=== PATIENT | male | born 1960 | race Caucasian/White ===

== ENCOUNTER 2018-02-18 21:13 | Inpatient (IN) ==
[2018-02-18] MEDS ORDERED: NS 1,000 ML IV ONE (21:24)
[2018-02-18] MEDS ORDERED: ONDANSETRON 4 MG/2 ML INJECTION IVP ONE (21:24)
--- NOTE | 2018-02-18 21:35 | Emergency Department Report ---
Neuro HPI - General Chief Complaint: Altered Mental Status Stated Complaint: CP,tong numb,face unable to move,dizzy blur vision Time Seen by Provider: 02/18/18 21:24 Source: patient, RN notes reviewed, old records reviewed Mode of arrival: ambulatory Limitations: no limitations - History of Present Illness HPI Narrative: 57yo man presents tot he ER for evaluation of left facial numbness and weakness. Pts sx began two days ago with some numbness and weakness of his upper left lip. Now has numbness/paresthesia/weakness of his whole left face/ tongue. Today, 4+ hours ago, pt began to have chest squeezing pressure. He has DM2; stopped taking his meds several days ago. Is in town for the last 3 mos with his son - normally lives/doctors in [place]. Has not sought prior treatment for any of this. Onset (ago): day(s) Location: left face History of same: No Quality: weak, numb, tingling Relieving factors: none Exacerbating factors: time Context: gradual onset On Anticoagulants: No Associated symptoms: chest pain Treatments Prior to Arrival: none - Related Data Home Medications: Home Medications Medication Instructions Recorded Confirmed Atorvastatin [Lipitor] 1 tab PO HS 02/18/18 02/18/18 Levothyroxine Tab [Synthroid] 200 mcg PO DAILY 02/18/18 02/18/18 Linagliptin [Tradjenta] 5 mg PO DAILY 02/18/18 02/18/18 Metoprolol Succinate 25 mg PO DAILY 02/18/18 02/18/18 Allergies/Adverse Reactions: Allergies Allergy/AdvReac Type Severity Reaction Status Date / Time acetaminophen AdvReac Verified 02/18/18 21:51 Review of Systems All systems: reviewed and negative except as stated Cardiovascular: Reports: as per HPI, chest pain. Denies: palpitations, dyspnea on exertion, orthopnea, edema, syncope, paroxysmal nocturnal dyspnea Neurological: Reports: as per HPI, weakness, numbness, paresthesias. Denies: headache, confusion, abnormal gait, vertigo PFSH Patient Stated Medical History Angina Yes Hypertension Yes Myocardial Infarction Yes Chronic Obstructive Pulmonary Yes Disease (COPD) Diabetes Mellitus Type 2 Yes Anemia Yes Clostridium Difficile Yes: 2016 Depression Yes Physical Exam - Limitations Limitations: no limitations - General General appearance: alert, in no apparent distress, obese - Normal Exams: Head:: Normocephalic without trauma Eyes:: Pupils are PERRLA w/ EOMI, No scleral icterus, irritation, or foreign bodies noted ENMT:: No facial trauma, nasal exudates, pharyngeal erythema, or exudates are noted Neck:: Full range of motion, without adenopathy Chest/Respirations:: Clear all wasserman, with good airflow, and symmetry bilaterally Cardiovascular:: Regular rate and rhythm, without murmur or gallop, Pulses 2+ all extremities, capillary refill, <2 seconds all extremities Lymphatic:: No lymphadenopathy Musculoskeletal:: No tenderness, or deformity noted Integumentary:: No rashes, hives, or bruising noted - Expanded Neurological Exam Patient oriented to: Present: person, place, time Speech: Absent: fluid speech (Mild dysarthria) Cranial nerves: Normal: EOM function (II, III, IV, ), gag reflex (IX), spinal accessory function (XI), Abnormal Left: facial sensation (V), facial palsy (VII) , tongue deviation (XII) Cerebellar function: Normal: finger to nose, heel to salcedo Cerebellar function: normal gait Motor strength - LUE: 5/5 Motor strength - RUE: 5/5 Motor strength - LLE: 5/5 Motor strength - RLE: 5/5 Upper motor neuron exam: Absent bilaterally: dipika neglect, pronator drift, Babinski sign, sensory extinction DTR: 2+: patellar (L), patellar (R) Coma scale eye opening: spontaneous Coma scale motor response: obeys commands Coma scale verbal response: oriented Coma scale total: 15 - Psychiatric Psychiatric exam: Present: agitated, anxious Course - Consultations Consultation #1: Vijay Telemed: Will admit for CVA. Time: 22:52 Vital Signs Temperature 98.0 F 02/18/18 21:14 Pulse Rate 94 02/18/18 21:14 Respiratory Rate 16 02/18/18 21:14 Blood Pressure 240/110 H 02/18/18 21:14 Pulse Oximetry 97 02/18/18 21:14 Temperature 98.7 F 02/18/18 21:30 Pulse Rate 94 02/18/18 22:15 Respiratory Rate 19 02/18/18 22:15 Blood Pressure 159/90 H 02/18/18 22:15 Pulse Oximetry 98 02/18/18 22:15 Neuro Symptoms/Deficit - MDM Narrative Medical decision making narrative: Pt with Hx and PE c/w CVA. No evidence of ACS on exam; sx likely attributable to anxiety. Explained that hospitalist would need to assess pt prior to treating his anxiety with anything that might alter his exam. - Differential Diagnosis Likely: delirium, subarachnoid hemorrhage, peripheral neuropathy, cerebrovascular accident, transient cerebral ischemia - Medical Records Attestation: I reviewed the patient's medical records. - Lab Data Attestation: I reviewed the patient's lab results. Result diagrams: 02/18/18 21:41 02/18/18 21:41 Lab Results 02/18/18 02/18/18 02/18/18 Range/Units 21:41 21:41 21:41 WBC 6.4 (4.5-11.0) T/MM3 RBC 4.33 L (4.50-5.90) M/MM3 Hgb 14.6 (13.5-17.5) GM/DL Hct 40.1 L (41-53) % MCV 92.6 (80-100) UM3 MCH 33.7 (26-34) UUG MCHC 36.4 (31-37) GM/DL RDW Std Deviation 39.6 (36.9-50.2) FL Plt Count 162 (130-400) T/MM3 MPV 9.7 (9.4-12.4) UM3 Immature Gran % (Auto) 0.5 (0.0-0.5) % Neut % (Auto) 43.6 (33-66) % Lymph % (Auto) 44.2 (23-45) % [place] % (Auto) 9.1 H (0-9.0) % Eos % (Auto) 2.0 (0-4) % Baso % (Auto) 0.6 (0-2) % Neut # (Auto) 2.8 (1.8-7.7) T/MM3 Lymph # (Auto) 2.8 (1-4.8) T/MM3 [place] # (Auto) 0.6 (0-0.8) T/MM3 Eos # (Auto) 0.1 (0-0.5) T/MM3 Baso # (Auto) 0.0 (0-0.2) T/MM3 Abs Immat Gran (auto) 0.03 (0.00-0.03) T/MM3 INR 0.98 (0.92-1.18) APTT 28.3 (24-36) SEC Turbidity < 20 (0-20) Sodium 144 (136-146) MEQ/L Potassium 4.4 (3.6-5) MEQ/L Chloride 103 (98-107) MEQ/L Carbon Dioxide 26 (22-30) MEQ/L Anion Gap 15 (5-15) meq/L BUN 22.0 H (9-20) MG/DL Creatinine 1.5 (0.8-1.5) mg/dL Estimated Creat Clear 69 (>50) mL/min GFR Calculation 48 (>60) mL/min BUN/Creatinine Ratio 15 (6-26) RATIO Glucose 351 H (75-110) MG/DL Calculated Osmolality 294 H (261-280) MOSM/KG Calcium 11.0 H (8.4-10.2) MG/DL Total Bilirubin 1.60 H (0.20-1.30) MG/DL Icterus Index < 2 (0-7) AST 33 (17-59) U/L ALT 29 (1-50) U/L Alkaline Phosphatase 132 H (38-126) U/L Troponin I < 0.012 (0-0.12) ng/ml NT-Pro-B Natriuret Pep 162 (0-175) pg/mL Total Protein 8.7 H (6.3-8.2) g/dL Albumin 5.2 H (3.5-5.0) g/dL Globulin 3.5 (2.4-3.6) G/DL Albumin/Globulin Ratio 1.5 (1.1-2.2) RATIO Specimen Hemolysis < 15 (0-25) Ur Collection Type Urine Color (YELLOW) Urine Clarity Urine pH (5.0-8.0) Ur Specific [place] (1.015-1.025) Urine Protein (NEGATIVE) Urine Glucose (UA) (NEGATIVE) Urine Ketones (NEGATIVE) Urine Occult Blood (NEGATIVE) Urine Nitrate (NEGATIVE) Urine Bilirubin (NEGATIVE) Urine Urobilinogen (NORMAL) EU/DL Ur Leukocyte Esterase (NEGATIVE) Urinalysis Comment 02/18/18 Range/Units 22:23 WBC (4.5-11.0) T/MM3 RBC (4.50-5.90) M/MM3 Hgb (13.5-17.5) GM/DL Hct (41-53) % MCV (80-100) UM3 MCH (26-34) UUG MCHC (31-37) GM/DL RDW Std Deviation (36.9-50.2) FL Plt Count (130-400) T/MM3 MPV (9.4-12.4) UM3 Immature Gran % (Auto) (0.0-0.5) % Neut % (Auto) (33-66) % Lymph % (Auto) (23-45) % [place] % (Auto) (0-9.0) % Eos % (Auto) (0-4) % Baso % (Auto) (0-2) % Neut # (Auto) (1.8-7.7) T/MM3 Lymph # (Auto) (1-4.8) T/MM3 [place] # (Auto) (0-0.8) T/MM3 Eos # (Auto) (0-0.5) T/MM3 Baso # (Auto) (0-0.2) T/MM3 Abs Immat Gran (auto) (0.00-0.03) T/MM3 INR (0.92-1.18) APTT (24-36) SEC Turbidity (0-20) Sodium (136-146) MEQ/L Potassium (3.6-5) MEQ/L Chloride (98-107) MEQ/L Carbon Dioxide (22-30) MEQ/L Anion Gap (5-15) meq/L BUN (9-20) MG/DL Creatinine (0.8-1.5) mg/dL Estimated Creat Clear (>50) mL/min GFR Calculation (>60) mL/min BUN/Creatinine Ratio (6-26) RATIO Glucose (75-110) MG/DL Calculated Osmolality (261-280) MOSM/KG Calcium (8.4-10.2) MG/DL Total Bilirubin (0.20-1.30) MG/DL Icterus Index (0-7) AST (17-59) U/L ALT (1-50) U/L Alkaline Phosphatase (38-126) U/L Troponin I (0-0.12) ng/ml NT-Pro-B Natriuret Pep (0-175) pg/mL Total Protein (6.3-8.2) g/dL Albumin (3.5-5.0) g/dL Globulin (2.4-3.6) G/DL Albumin/Globulin Ratio (1.1-2.2) RATIO Specimen Hemolysis (0-25) Ur Collection Type Urine, void-cc/notcc Urine Color Yellow (YELLOW) Urine Clarity Clear Urine pH 6.0 (5.0-8.0) Ur Specific [place] 1.010 L (1.015-1.025) Urine Protein Negative (NEGATIVE) Urine Glucose (UA) 3+ A (NEGATIVE) Urine Ketones Negative (NEGATIVE) Urine Occult Blood Negative (NEGATIVE) Urine Nitrate Negative (NEGATIVE) Urine Bilirubin Negative (NEGATIVE) Urine Urobilinogen 0.2 (NORMAL) EU/DL Ur Leukocyte Esterase Negative (NEGATIVE) Urinalysis Comment Microscopic not ind. - Radiology Data Attestation: I reviewed the patient's radiology results. CT Head: FINDINGS: Brain: Age consistent cerebral and cerebellar atrophy. Age consistent periventricular white matter abnormality. No hemorrhage. Ventricles: Normal. No ventriculomegaly. Bones/joints: Normal. No acute fracture. Soft tissues: Normal. Sinuses: Frontal, maxillary and ethmoid sinus disease. Mastoid air cells: Unremarkable as visualized. No mastoid effusion. IMPRESSION: Sinus disease noted. No acute intracranial pathology. CXR: No acute CT pathology. - EKG Data EKG #1 EKG attestation: Yes: I reviewed and interpreted this EKG. EKG shows normal: sinus rhythm, intervals, QRS complexes Rate: normal [place]/QRS: left axis deviation Interpretation: nonspecific ST-T wave changes Disposition Clinical Impression: Anxiety CVA (cerebral vascular accident) Qualifiers: CVA mechanism: occlusion Precerebral and cerebral artery: unspecified precerebral artery Qualified Code(s): I63.20 - Cerebral infarction due to unspecified occlusion or stenosis of unspecified precerebral arteries Disposition: Discharged Home, Self-Care Print Language: Emirati Condition: Stable Referrals: Barak Harrell DO [Primary Care Provider] - Time of Disposition: 22:51 - Seen By: physician
[2018-02-18] MEDS ORDERED: NITROGLYCERIN 0.4 MG SUBLINGUAL TABLET SL ONE (22:27)
[2018-02-18] MEDS ORDERED: ASPIRIN 325 MG TABLET PO ONE (22:28)
[2018-02-18] MEDS ORDERED: LABETALOL 20mg/4ml INJECTION IVP ONE (23:42)
[2018-02-18] MEDS ORDERED: ACETAMINOPHEN 160mg/5ml ORAL LIQUID PO PRN (23:42)
[2018-02-18] MEDS ORDERED: DEXTROSE 50% SYRINGE 50ml (1 AMP) IVP PRN (23:42)
--- NOTE | 2018-02-19 00:05 | History & Physical Report ---
History of Present Illness Date: 02/19/18 Chief complaint: left facial weakness HPI: This is a 57 y/o male with a history of DM, CAD who presents with onset of left facial numbness for the past 2 days. The patient states initially started as tongue not feeling right on the left side then he started dribbling out of his left face. He has had no motor or sensory deficits at this time otherwise. Today he noticed mild chest tightness. He has a hx of CAD with previous stents. No SOA, occasional cough, no pnd, no orthopnea. At this time the workup in the ED was neg for cardiac concerns . He had a CT head that was unremarkable. He does describe anxiety. He does continue to smoke. The patient will be admitted for further evaluation of neurological symptoms and chest pressure Review of Systems All systems PM: 10-point ROS was reviewed, no additional remarkable complaints except Past Medical History Medical History Updates: dm 2, HTN, dyslipidemia, hypthyroid, cAD, COPD, ureterolithiasis, cysts on kidney Surgical History: cholecystectomy, cornary stents, left orif Family History Updates: mother alive with multiple medical problems in assisted living, father CVA intoxicated. Family History: As Above - Social History Smoking status: Current every day smoker Substance use type: does not use Alcohol intake frequency: former alcohol drinker Last drink: unknown Housing: house Household members: family Current occupational status: disabled Current occupational exposures/hazards: No Does patient use chewing tobacco?: No Current residence: Apartment/Private Home Medications Home Medications Medication Instructions Recorded Confirmed Type Levothyroxine Tab [Synthroid] 200 mcg PO DAILY 02/18/18 02/19/18 History Linagliptin [Tradjenta] 5 mg PO DAILY 02/18/18 02/18/18 History Metoprolol Succinate 25 mg PO DAILY 02/18/18 02/18/18 History Allergies Allergy/AdvReac Type Severity Reaction Status Date / Time acetaminophen AdvReac Verified 02/18/18 21:51 Exam Vital Signs: Temperature 97.8 F 02/18/18 23:51 Pulse Rate 78 02/18/18 23:51 Respiratory Rate 20 02/18/18 23:51 Blood Pressure 178/94 H 02/18/18 23:51 Pulse Oximetry 99 02/18/18 23:51 Telemetry Rhythm: Sinus Rhythm Height/Weight/BMI: Height 1.88 m Weight 99.9 kg - Constitutional Present: no acute distress - Routine HEENT Exam Head: Present: normocephalic, atraumatic Eye: Present: EOMI, PERRL, conjunctivae pink. Absent: scleral injection, nystagmus ENT: Present: mucous membranes moist - Routine Neck Exam Present: supple, full ROM - Routine Respiratory Exam Present: CTA bilaterally - Routine Cardiovascular Exam Present: RRR, no murmur - Routine Abdominal Exam Present: soft, normoactive bowel sounds, non distended, non tender - Routine Extremities Exam Present: no edema - Routine Back/Spine/Pelvis Exam Back/Spine: Present: full ROM - Routine Skin Exam Present: intact - Routine Neurological Exam Present: alert, oriented X3. Absent: sensory deficit, motor deficit only deficit in this right handed man is sensory on left side of face (cheek, chin but not forehead), motor weakness left side of face but brow creases are the same. Otherwise strength upper and lower 4plus/5, sensory light tough normal , finger tonose just fine. - Routine Psychiatric Exam Present: normal affect Results - Labs CBC & Chem 7: 02/19/18 04:01 02/19/18 04:01 Labs: labs, ekg and cxr, ct head reassuring and pertinent findings discussed below Assessment and Plan Assessment and Plan: 1. left facial weakness/numbness acute POA: is this a peripheral 7 vs central. high risk of cva. aspirin, plavix added, continue statin. tele, frequent neuro checks. mri/mra ordered in the am, echo ordered. Because of high risk need to exclude cva before assuming just peripheral 7. Note that forehead preservation is not always 100%. 2. HTN chronic POA: permissive HTN overnight 3. chest pressure acute POA: resolved. obviously concerned about unstable angina in this diabetic, continue to smoke, not compliant patient. rule out on tele, 4. COPD chronic POA: prn nebs, not exacerbated 5. hypothyroid chronic POA: synthroid, check tsh 6. tobacco abuse chronic POA: juvenile counselor to stop 7. 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 To be aware of, Patient reports h/o chronic liver disease. 8. ckd 3 present on admission: repeat in the am, baseline not known 9. DVT ppx; SCD, lovenox DVT Prophylaxis: SCD's, Lovenox Resuscitation Status: Full Code - Physician Narrative Physician: Pedro Liriano MD Narrative: Date: 02/19/18 Time: [id number] Have independently interviewed and examined pt. Chart reviewed. Reviewed above note and concur. CC: Left facial weakness/numbness, chest pain HPI: 57 y/o male with CAD, DM, COPD presents to ED with a 2 day history of left facial weakness/numbness. Progressive with time, increasing on day of presentation to point would drool out of the corner of left lip when drinking. No change in hearing. Notes blurred vision. RÍOS in posterior aspect of neck, worse with movement. Notes numbness of hands/feet but in a stable pattern for his neuropathy. Able to move arms and legs normally, no coordination problems. Generally feels weak but not localizing to one side or other. About 4 hours before presentation, developed left retrosternal chest pain with radiation to shoulder. [place] like a significant squeeze. Very unnerving sensation, and anxiety he felt with pain increased his pain. Evaluated in ED. CT negative for acute bleed. Troponin unremarkable. Does have CAD and hx stent; not taking ASA ( no specific reason for not taking). Sugars elevated. Reports not been taking his medications in days preceding presentation. Due to concern for acute CVA in this patient with suboptimal treatment of multiple medical conditions, decision was made to admit to [facility]. PMHx: CAD with hx stent, HTN, HDL, Type II DM, Hypothyroidism, Stage III CKD, COPD, Tobacco dependency, Hx ETOHism, Anemia, Depression. PSxHx: Cholecystectomy, Left ORIF ALL: acetaminophen (Avoids due to liver disease from ETOHism). MED: see MAR Shx: . Stay with son - has turned into extended stay; established with Sharri at . Smokes 1/2ppd. No ETOH x2 years. FHx: NC ROS: as above. Remainder of 10 point ROS discussed with pt, neg except for: Pulm -chronic cough/wheeze pt attributes to smokine, not changing. GI: no diarrhea, bowel stable. Exam GEN: WDWN male, awake and alert HEENT: NC/AT PERRLA EOMI MMM, left facial droop Neck: supple, no tracheal deviation CV: regular without murmur Lungs: decreased bilaterally, no crackles or wheeze. Breaths comfortably on RA AB: soft flat nt/nd BS present EXT: no clubbing, cyanosis, edema. 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 MRI, Doppler neck, and ECHO pending. Lipitor started. Will add lisinopril 5mg due to HTN and DM. Amitriptyline 10mg at night due to neuropathy. Encourage tobacco cessation. Encourage medication adherence. Hospital Course Summary Disclaimer: The visit summary below is not to be considered part of the above Progress Note. Hospital Course: 02/18/18 left facial weakness/numbness acute POA: is this a peripheral vs central. high risk of cva. aspirin, plavix added, continue statin. tele, frequent neuro checks. mri/mra ordered in the am, echo ordered. Because of high risk need to exclude cva before assuming just peripheral 7. Note that forehead preservation is not always 100%. HTN chronic POA: permissive HTN overnight Chest pressure acute POA: resolved. Obviously concerned about unstable angina in this diabetic, continue to smoke , not compliant patient. rule out on tele, COPD chronic POA: prn nebs, not exacerbated Hypothyroid chronic POA: synthroid, check tsh Tobacco abuse chronic POA: juvenile counselor to stop Recovering acholic chronic not POA: sober for 2 years. To be aware of, Patient reports h/o chronic liver disease. Stage III CKD present on admission: repeat in the am, baseline not known DVT ppx; SCD, lovenox
[2018-02-19] MEDS: INSULIN ASPART 100unit/ml INJECTION SQ PRN ×4 (00:30→17:58)
[2018-02-19] MEDS: SALINE FLUSH 10ml SYRINGE IVF PRN ×2 (00:44→13:10)
[2018-02-19] MEDS: LORazepam 1 MG TABLET PO PRN ×2 (01:14→17:58)
[2018-02-19] MEDS ORDERED: LEVOTHYROXINE 200 MCG TABLET PO SCH (07:15)
--- NOTE | 2018-02-19 08:02 | XRay Report ---
INDICATION: CP PROCEDURE: CHEST 2-VIEWS UPRIGHT (PA & LAT) Encounter: Initial COMPARISON: None FINDINGS: The lungs are clear without evidence of focal abnormal airspace opacity. There is no pleural effusion or pneumothorax. The heart size, mediastinal contours and pulmonary vascularity are within normal limits. There is no significant skeletal abnormality. IMPRESSION: No acute cardiopulmonary disease. .
--- NOTE | 2018-02-19 08:20 | CT Scan Report ---
Indication: Neuro deficit PROCEDURE: CT head/brain wo con: Encounter: Initial Comparison: None Technique: Axial CT images through the head were performed without contrast. Iterative Reconstruction dose reducing technique was utilized. FINDINGS: The ventricles are of normal size, shape, and contour for the patient's age. There are scattered areas of low attenuation in the white matter which most likely represent changes from chronic microvascular ischemia. The brainstem, cerebellum, and cerebral hemispheres otherwise have a normal morphology and CT attenuation. There is no evidence of midline displacement. No hemorrhage, signs of acute territorial stroke, mass effect, mass lesions, or edema is evident. The visualized portions of the skull base, midface, and calvarium demonstrate no abnormality. The paranasal sinuses are well aerated and free of significant disease. The tympanic and mastoid cavities appear normal. IMPRESSION: No acute intracranial abnormality or hemorrhage. There is a preliminary report by virtual radiologic. .
[2018-02-19] MEDS ORDERED: CLOPIDOGREL 75 MG TABLET PO SCH (09:00)
[2018-02-19] MEDS ORDERED: ASPIRIN 325 MG TABLET PO SCH (09:00)
[2018-02-19 10:57] VITALS: BMI 27.7
[2018-02-19] MEDS ORDERED: NS 50 ML ONE (11:14)
[2018-02-19] MEDS ORDERED: SALINE FLUSH 10ml SYRINGE ONE (11:14)
[2018-02-19 13:08] VITALS: O2SAT 100
[2018-02-19] MEDS ORDERED: LISINOPRIL 5 MG TABLET PO SCH (14:15)
--- NOTE | 2018-02-19 15:07 | Magnetic Resonance Report ---
Indication: left face weakness PROCEDURE: MR angio neck wo/w con: Comparison: None Technique: MRA imaging of the neck with and without contrast was acquired. Maximum intensity projection (MIP) reformatted images were produced. Contrast: 20 mL ProHance Findings: The carotid bifurcations are widely patent bilaterally with normal flow-related enhancement within the common carotid, internal carotid, and external carotid arteries. The left vertebral artery is diminutive and terminates as the PICA. The right vertebral artery is dominant and supplies the basilar. Impression: No hemodynamically significant stenosis by NASCET criteria. .
--- NOTE | 2018-02-19 15:08 | Magnetic Resonance Report ---
Indication: left face weakness PROCEDURE: MR head/brain/ang head wo con: Encounter: Initial Comparison: Head CT from yesterday Technique: Multiplanar, multisequence, MR imaging of the head with and without contrast was acquired. MRA imaging of the head without contrast was acquired. Maximum intensity projection (MIP) reformatted images were produced. 3-dimensional volume rendered imaging of the [place] of [place] was performed by the technologist on a dedicated workstation. Contrast: 20 mL of ProHance Findings: MRI head: The ventricles are of normal size, shape, and contour for the patient's age. There are small nonspecific punctate areas of T2-weighted and T2 FLAIR weighted signal abnormality in the deep frontoparietal white matter that most likely represent small vessel ischemic disease. This is of a degree that is considered to be normal for the patient's age. The brain stem, cerebellum, and cerebral hemispheres otherwise have a normal morphologic appearance as well as MR signal intensity on all pulse sequences. Following intravenous administration of contrast, no areas of abnormal enhancement are evident. There are no areas of restricted diffusion on diffusion weighted imaging to suggest an acute infarct. There is no evidence of an intracranial mass lesion, intracranial hemorrhage, or hydrocephalus. The visualized portions of the orbits, calvarium and skull base demonstrate no significant abnormality. Right maxillary and frontal sinus mucosal thickening. MRA head: The intracranial portions of the vertebral arteries, internal carotid arteries, and their major branches show no significant stenosis or other vascular anomaly. No aneurysms or vascular malformations are evident. Bilateral posterior communicating arteries. Left vertebral artery terminates as the PICA. Impression: 1. MRI head: No acute infarct or hemorrhage. No acute intracranial abnormality seen. 2. MRA head: No evidence of aneurysm or flow-limiting arterial stenosis. .
--- NOTE | 2018-02-19 15:35 | Echocardiogram ---
DATE OF PROCEDURE February 19, 2018 REFERRING PHYSICIAN Pedro Liriano MD This is a two-dimensional echo with spectral Doppler, color-flow and M-mode. It was obtained in a patient with facial weakness. Left atrial dimension is normal. Left ventricle end-diastolic dimension is normal. Left ventricular wall thickness is normal. LV systolic function is grossly normal with ejection fraction of about 60%. Right atrium is normal. Right ventricle is normal. Aortic root dimension is normal. Mitral valve is morphologically normal with trace of mitral regurgitation. Aortic valve was not visualized well however Doppler studies indicate no stenosis or insufficiency. Tricuspid valve shows mild tricuspid regurgitation with normal estimated pulmonary artery systolic pressure of 21. Pulmonary valve shows no pulmonary insufficiency. There is no pericardial effusion. Grossly there is no intracardiac thrombus or mass, however, the study was technically difficult. IMPRESSION 1. Technically difficult study. 2. Grossly no intracardiac thrombus or mass. 3. Normal LV systolic function with ejection fraction of 60%. 4. Trace of mitral regurgitation. 5. Mild tricuspid regurgitation with normal estimated pulmonary artery systolic pressure of 21. MTDD
[2018-02-19 16:38] VITALS: BP 151/93; PULSE 65; RESP 18; TEMP 97.1
--- NOTE | 2018-02-19 16:44 | Progress Note ---
- Date 02/19/18 Subjective: F/U: Left facial weakness Doing about the same this afternoon. Biggest complaint is his nerve pain. Ambulating well. Breathing well. No new neurological changes. Objective Vital signs: Temperature 97.1 F 02/19/18 16:37 Pulse Rate 65 02/19/18 16:37 Respiratory Rate 18 02/19/18 16:37 Blood Pressure 151/93 H 02/19/18 16:37 Pulse Oximetry 100 02/19/18 16:37 Height/Weight/BMI: Height 1.88 m Weight 98.1 kg Body Mass Index 27.7 - Constitutional Present: no acute distress, well nourished, well developed, cooperative - Routine HEENT Exam Head: Present: normocephalic, atraumatic Eye: Present: EOMI, PERRL ENT: Present: mucous membranes moist - Routine Respiratory Exam Present: decreased breath sounds. Absent: respiratory distress, rhonchi, wheezes - Routine Cardiovascular Exam Present: RRR, no murmur - Routine Abdominal Exam Present: soft, normoactive bowel sounds, non distended, non tender - Routine Extremities Exam Present: pulses intact. Absent: cyanosis, clubbing - Routine Musculoskeletal Exam Musculoskeletal: Present: no clubbing or cyanosis - Routine Skin Exam Present: dry, warm - Routine Neurological Exam Present: alert, oriented X3, vision grossly intact, hearing grossly intact, facial asymmetry, normal speech. Absent: CN II-XII intact (Left facial droop), altered mental status, moving all extremities, nystagmus - Routine Psychiatric Exam Present: normal affect, normal thought process, cooperative Results - Labs CBC & Chem 7: 02/19/18 04:01 02/19/18 04:01 Assessment and Plan (1) Raymond's palsy Current visit: Yes Status: Acute (2) CVA (cerebral vascular accident) Current visit: Yes Status: Ruled-out (3) Coronary artery disease Current visit: Yes Status: Acute (4) DM type 2 (diabetes mellitus, type 2) Current visit: Yes Status: Acute (5) Hypertension Current visit: Yes Status: Acute (6) COPD (chronic obstructive pulmonary disease) Current visit: Yes Status: Acute (7) Tobacco abuse Current visit: Yes Status: Acute Assessment and Plan: Assessment Left facial weakness/numbness with persistent symptoms CVA excluded Most likely Raymond's palsy if not changed noted on MRI Chest pain - AMI ruled out CAD HTN HDL Type II DM - uncontrolled Hypothyroidism Type II DM Diabetic peripheral neuropathy Stage III CKD Tobacco dependency ETOHism in remission for 2 years Plan Evaluated by therapy and did well. MRI, Doppler neck, and ECHO all unremarkable. No evidence for CVA. Could use Prednisolone 25mg BID for 10 day due to Raymond's palsy. Discussed side effects. Most likely would increase blood sugars. Patient uncertain if he want to initiate steroids. Lipitor started. Patient reports being on this medication in past, but stopped due to his liver. With his CAD and DM do highly recommend statin therapy. Will give pt prescription for Lipitor - but definitely will need outpatient follow up and monitoring. Will add lisinopril 5mg due to HTN and DM. Discussed potential side effects. Will need BMP recheck in 1 week to monitor renal and potassium status. Amitriptyline 10mg at night due to neuropathy. Advised patient on side effects. Additionally, advised that pain relief would not be immediate - may take weeks for effect. If symptoms controlled with amitriptyline, could continue 10mg - advised likely doses of 25 to 50mg needed for effect. Stressed importance of aspirin therapy to help decrease CV risk. Would recommend 81mg daily with food. Encourage tobacco cessation. Encourage medication adherence. With clinical stability, can discharge to home. F/U with Dr Harrell in 1 week - pt reports has apt on 02/25. Encouraged patient to keep that appointment. Recommend rechecking BMP at that time due to KAMILA use. Routine liver enzyme follow up for statin therapy. See orders for details. DVT Prophylaxis: SCD's, Lovenox Resuscitation Status: Full Code - Physician Narrative Narrative: Date: 02/19/18 Time: 1640 Hospital Course Summary Disclaimer: The visit summary below is not to be considered part of the above Progress Note. Hospital Course: 02/18/18 left facial weakness/numbness acute POA: is this a peripheral vs central. high risk of cva. aspirin, Plavix added, continue statin. tele, frequent neuro checks. mri/mra ordered in the am, echo ordered. Because of high risk need to exclude cva before assuming just peripheral 7. Note that forehead preservation is not always 100%. HTN chronic POA: permissive HTN overnight Chest pressure acute POA: resolved. Obviously concerned about unstable angina in this diabetic, continue to smoke , not compliant patient. 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 To be aware of, Patient reports h/o chronic liver disease. Stage III CKD present on admission: repeat in the am, baseline not known DVT ppx; SCD, Lovenox 02/19/18 Evaluated by therapy and did well. MRI, Doppler neck, and ECHO all unremarkable. No evidence for CVA. Could use Prednisolone 25mg BID for 10 day due to Raymond's palsy. Discussed side effects. Most likely would increase blood sugars. Patient uncertain if he want to initiate steroids. Lipitor started. Patient reports being on this medication in past, but stopped due to his liver. With his CAD and DM do highly recommend statin therapy. Will give pt prescription for Lipitor - but definitely will need outpatient follow up and monitoring. Will add lisinopril 5mg due to HTN and DM. Discussed potential side effects. Will need BMP recheck in 1 week to monitor renal and potassium status. Amitriptyline 10mg at night due to neuropathy. Advised patient on side effects. Additionally, advised that pain relief would not be immediate - may take weeks for effect. If symptoms controlled with amitriptyline, could continue 10mg - advised likely doses of 25 to 50mg needed for effect. Stressed importance of aspirin therapy to help decrease CV risk. Would recommend 81mg daily with food. Encourage tobacco cessation. Encourage medication adherence. With clinical stability, can discharge to home. F/U with Dr Harrell in 1 week - pt reports has apt on 02/25. Encouraged patient to keep that appointment. Recommend rechecking BMP at that time due to KAMILA use. Routine liver enzyme follow up for statin therapy. See orders for details.
--- NOTE | 2018-02-19 18:13 | Discharge Summary ---
Discharge Information Date of admission: 02/18/18 23:01 Anticipated date of discharge: 02/19/18 Attending Physician: Pedro Liriano MD Primary care physician: Barak Harrell DO Consults: PT/OT/Speech - Discharge Diagnosis (1) Raymond's palsy Status: Acute (2) CVA (cerebral vascular accident) Status: Ruled-out (3) Coronary artery disease Status: Acute (4) DM type 2 (diabetes mellitus, type 2) Status: Acute (5) Hypertension Status: Acute (6) COPD (chronic obstructive pulmonary disease) Status: Acute (7) Tobacco abuse Status: Acute Problems Reviewed?: Yes Admission diagnosis Concern for acute CVA due to underlying CAD, DM, and presenting symptoms Discharge diagnosis Left facial weakness/numbness with persistent symptoms CVA excluded 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 Left ventricle end-diastolic dimension is normal. Left ventricular wall thickness is normal. LV systolic function is grossly normal with ejection fraction of about 60%. Right atrium is normal. Right ventricle is normal. Aortic root dimension is normal. Mitral valve is morphologically normal with trace of mitral regurgitation. Aortic valve was not visualized well however Doppler studies indicate no stenosis or insufficiency. Tricuspid valve shows mild tricuspid regurgitation with normal estimated pulmonary artery systolic pressure of 21. Pulmonary valve shows no pulmonary insufficiency. There is no pericardial effusion. Grossly there is no intracardiac thrombus or mass, however, the study was technically difficult. IMPRESSION 1. Technically difficult study. 2. Grossly no intracardiac thrombus or mass. 3. Normal LV systolic function with ejection fraction of 60%. 4. Trace of mitral regurgitation. 5. Mild tricuspid regurgitation with normal estimated pulmonary artery systolic pressure of 21. - Laboratory Labs: Admit Lab 02/18/18 21:41 WBC 6.4 Hgb 14.6 Hct 40.1 L MCV 92.6 Plt Count 162 Neut % (Auto) 43.6 Lymph % (Auto) 44.2 Meigs % (Auto) 9.1 H Eos % (Auto) 2.0 Admit Lab 02/18/18 21:41 Sodium 144 Potassium 4.4 Chloride 103 Carbon Dioxide 26 Anion Gap 15 BUN 22.0 H Creatinine 1.5 Estimated Creat Clear 69 GFR Calculation 48 BUN/Creatinine Ratio 15 Glucose 351 H Calculated Osmolality 294 H Calcium 11.0 H Total Bilirubin 1.60 H AST 33 ALT 29 Alkaline Phosphatase 132 H Troponin I < 0.012 Total Protein 8.7 H Albumin 5.2 H Globulin 3.5 Albumin/Globulin Ratio 1.5 Lipid Profile 02/19/18 00:41 Triglycerides 334 H Cholesterol 201 H LDL Cholesterol, Calc 110.2 VLDL Cholesterol 66.8 H HDL Cholesterol 24 L Cholesterol/HDL Ratio 8.4 H Laboratory Tests 02/19/18 00:41 Hemoglobin A1c 10.4 H Free T4 1.90 Laboratory Tests 02/18/18 21:41 INR 0.98 APTT 28.3 02/19/18 04:01 02/19/18 04:01 - Radiology Radiology: Date of Exam: 02/18/18 Type of Exam: XR chest 2V FINDINGS: The lungs are clear without evidence of focal abnormal airspace opacity. There is no pleural effusion or pneumothorax. The heart size, mediastinal contours and pulmonary vascularity are within normal limits. There is no significant skeletal abnormality. IMPRESSION: No acute cardiopulmonary disease. Date of Exam: 02/18/18 Type of Exam: CT head/brain wo con FINDINGS: The ventricles are of normal size, shape, and contour for the patient' s age. There are scattered areas of low attenuation in the white matter which most likely represent changes from chronic microvascular ischemia. The brainstem , cerebellum, and cerebral hemispheres otherwise have a normal morphology and CT attenuation. There is no evidence of midline displacement. No hemorrhage, signs of acute territorial stroke, mass effect, mass lesions, or edema is evident. The visualized portions of the skull base, midface, and calvarium demonstrate no abnormality. The paranasal sinuses are well aerated and free of significant disease. The tympanic and mastoid cavities appear normal. IMPRESSION: No acute intracranial abnormality or hemorrhage. Date of Exam: 02/19/18 Type of Exam: MR head/brain/ang head wo con Findings: MRI head: The ventricles are of normal size, shape, and contour for the patient's age. There are small nonspecific punctate areas of T2-weighted and T2 FLAIR weighted signal abnormality in the deep frontoparietal white matter that most likely represent small vessel ischemic disease. This is of a degree that is considered to be normal for the patient's age. The brain stem, cerebellum, and cerebral hemispheres otherwise have a normal morphologic appearance as well as MR signal intensity on all pulse sequences. Following intravenous administration of contrast, no areas of abnormal enhancement are evident. There are no areas of restricted diffusion on diffusion weighted imaging to suggest an acute infarct. There is no evidence of an intracranial mass lesion, intracranial hemorrhage, or hydrocephalus. The visualized portions of the orbits, calvarium and skull base demonstrate no significant abnormality. Right maxillary and frontal sinus mucosal thickening. MRA head: The intracranial portions of the vertebral arteries, internal carotid arteries, and their major branches show no significant stenosis or other vascular anomaly. No aneurysms or vascular malformations are evident. Bilateral posterior communicating arteries. Left vertebral artery terminates as the PICA. Impression: 1. MRI head: No acute infarct or hemorrhage. No acute intracranial abnormality seen. 2. MRA head: No evidence of aneurysm or flow-limiting arterial stenosis. Date of Exam: 02/19/18 Type of Exam: MR angio neck wo/w con Findings: The carotid bifurcations are widely patent bilaterally with normal flow-related enhancement within the common carotid, internal carotid, and external carotid arteries. The left vertebral artery is diminutive and terminates as the PICA. The right vertebral artery is dominant and supplies the basilar. Impression: No hemodynamically significant stenosis by NASCET criteria. History of Present Illness HPI: This is a 57 y/o male with a history of DM, CAD who presents with onset of left facial numbness for the past 2 days. The patient states initially started as tongue not feeling right on the left side then he started dribbling out of his left face. He has had no motor or sensory deficits at this time otherwise. Today he noticed mild chest tightness. He has a hx of CAD with previous stents. No SOA, occasional cough, no pnd, no orthopnea. At this time the workup in the ED was neg for cardiac concerns . He had a CT head that was unremarkable. He does describe anxiety. He does continue to smoke. The patient will be admitted for further evaluation of neurological symptoms and chest pressure. For complete details of the H&P refer to that document. Objective Vital signs: Temperature 97.1 F 02/19/18 16:37 Pulse Rate 65 02/19/18 16:37 Respiratory Rate 18 02/19/18 17:58 Blood Pressure 151/93 H 02/19/18 16:37 Pulse Oximetry 100 02/19/18 16:37 Height/Weight/BMI: Height 1.88 m Weight 98.1 kg Body Mass Index 27.7 Hospital Course This is a general summary of the patient's hospital course. For more details refer to the complete medical record. Hospital course: 02/18/18 left facial weakness/numbness acute POA: is this a peripheral vs central. high risk of cva. aspirin, Plavix added, continue statin. tele, frequent neuro checks. mri/mra ordered in the am, echo ordered. Because of high risk need to exclude cva before assuming just peripheral 7. Note that forehead preservation is not always 100%. HTN chronic POA: permissive HTN overnight Chest pressure acute POA: resolved. Obviously concerned about unstable angina in this diabetic, continue to smoke , not compliant patient. 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 To be aware of, Patient reports h/o chronic liver disease. Stage III CKD present on admission: repeat in the am, baseline not known DVT ppx; SCD, Lovenox 02/19/18 Evaluated by therapy and did well. MRI, MRA neck, and ECHO all unremarkable. No evidence for CVA. Could use Prednisolone 25mg BID for 10 day due to Raymond's palsy. Discussed side effects. Most likely would increase blood sugars. Patient uncertain if he want to initiate steroids. Lipitor started. Patient reports being on this medication in past, but stopped due to his liver. With his CAD and DM do highly recommend statin therapy. Will give pt prescription for Lipitor - but definitely will need outpatient follow up and monitoring. Will add lisinopril 5mg due to HTN and DM. Discussed potential side effects. Will need BMP recheck in 1 week to monitor renal and potassium status. Amitriptyline 10mg at night due to neuropathy. Advised patient on side effects. Additionally, advised that pain relief would not be immediate - may take weeks for effect. If symptoms controlled with amitriptyline, could continue 10mg - advised likely doses of 25 to 50mg needed for effect. Stressed importance of aspirin therapy to help decrease CV risk. Would recommend 81mg daily with food. Encourage tobacco cessation. Encourage medication adherence. With clinical stability, can discharge to home. F/U with Dr Harrell in 1 week - pt reports has apt on 02/25. Encouraged patient to keep that appointment. Recommend rechecking BMP at that time due to KAMILA use. Routine liver enzyme follow up for statin therapy. See orders for details. Time spent with patient: discharge greater than 30 minutes Resuscitation Status: Full Code Discharge Plan - Discharge Disposition Discharge Date: 02/19/18 Disposition: 01 Discharged Home, Self-Care *Condition: Stable Reason For Visit (Visit label in EMR): CVA - Discharge Medications *Discharge Medications: New RX: Atorvastatin [Lipitor] 20 mg PO HS #30 tab RX: Lisinopril [Prinivil] 5 mg PO DAILY #30 tab RX: Prednisolone Sod Phosphate [Prednisolone Sodium Phosphate] 5 ml PO BID # 100 solution Aspirin [Adult Aspirin] 81 mg PO DAILY #1 bottle RX: Amitriptyline [Elavil] 10 mg PO HS #30 tab Continue RX: Metoprolol Succinate 25 mg PO DAILY RX: Linagliptin [Tradjenta] 5 mg PO DAILY RX: Levothyroxine Tab [Synthroid] 200 mcg PO DAILY - Discharge Packet/Instructions *Diet: 2000 KCAL ADA low sodium *Activity: As tolerated *Pain Management/Treatment: Continue prior home pain medicaitons. *Wound Care: N/A Additional Instructions: It is very important to take Aspirin daily to help protect your circulation and heart. Use 81mg once a day. Can take with food to decrease risk of stomach upset. Prednisolone may help decrease weaknes from Raymond's Palsy. Use 5ml twice a day for 10 days. Likely will increase your blood sugars. Amitriptyline 10mg may help decrease neuropathic pain. It is SLOW to work. Use lisinopril 5mg once a day to help blood pressure. You will need blood work at your next visit with Dr Harrell to make sure this medication is not placing too much strain on your kidneys or elevating your potassium level. Lipitor (atorvastatin) can lower cholesterol and protect your circulation. Your liver enzymes will need to be monitiored while you are on this medicaiton. *Expected Signs/Symptoms: Facial weakness will hopefully improve in the next several weeks. *Notify Physician if: Temp >100.4. New onset neurological changes (acute arm/ leg weakness, etc.) Feeling extreamly dizzy/faint with postional changes. Any other worrysome symptom. *During Business Hours Contact: Dr Harrell *After Business Hours Contact: [place] [facility] [place] ([phone]) and have your care provider contacted. *Pending Lab/Results: No Pending Lab - Referrals/Follow Up *Referrals/Follow Up: Barak Harrell DO [Primary Care Provider] - 1 Week (Keep previously scheduled appointment. Hospital follow up - left facial weakness -- Raymond's Palsy. No CVA identified. Do recommend BMP checked at that time due to starting lisinopril. ) - Patient Handouts Patient Handouts: Raymond Palsy (DC), Type 2 Diabetes in Adults (DC) - Dismissal Complete Discharge Instructions are:: Complete Physician Narrative - Narrative Physician: Pedro Liriano MD Attestation Narrative: Date: 02/19/18 Time: 1808 I have independently interviewed and examined patient prior to discharge. See my progress note for details. Medically stable for discharge to home.
[2018-02-19] MEDS ORDERED: ATORVASTATIN 20 MG TABLET PO SCH (21:00)
[2018-02-19] MEDS ORDERED: AMITRIPTYLINE 10 MG TABLET PO SCH (21:00)
== END 2018-02-19 18:05 | disposition home or self-care (01) | DRG 74 ==
LOC: ED 21:13 → EDHOLD 23:01 → MED 23:25
PROVIDERS: ADMIT Emergency Medicine; ATTEND Hospitalist